=== PATIENT | male | born 1965 | race Caucasian/White ===

== ENCOUNTER → 2021-04-13 | Outpatient (CLI) | payer OTHER ==
[~2021-04-13] MED LIST: GABA300 PO; GLIP5 PO; Gabapentin600 MG PO; Glucotrol Xl5 MG PO; INSULANPEN SC; MOTION RELIEF25 MG PO; SIMV10 PO; ZOCOR20 MG PO
[2021-04-13 10:22] LABS: Magnesium, Blood 1.9 mg/dL (1.6-2.4); Thyroid Stimulating Hormone 1.025 uIU/mL (0.360-4.800)
== END ==
LOC: LAB SHORT 09:58 → LAB 09:58
PROVIDERS: Physician Assistant Medical
DX: R53.83 Other fatigue (principal)
CPT/HCPCS: 83735; 84443

== ENCOUNTER → 2022-06-08 | Outpatient (CLI) | payer OTHER ==
[~2022-06-08] MED LIST changes: +Clindamycin HC150 MG PO; +INSULIN GL100 UNIT/1 SQ; +LOW DOSE ASPIRI81 M1 PO; +NEURONTIN300 MG PO; +ONDA4ODT MM
[2022-06-08 15:09] LABS: Creatinine, Urine Random 90.9 mg/dL (27.00-270.00); Microalb/Creat Ratio UR, Rand 12.761 mg/g (0.000-30.000); Microalbumin, Random Urine 11.6 mg/L (0.000-20.000)
== END | disposition home or self-care (01) ==
LOC: LAB SHORT 04:00 → LAB 04:00
PROVIDERS: Physician Assistant
DX: E11.37X1 Type 2 diabetes mellitus with diabetic macular edema, resolved following treatment, right eye (principal)
CPT/HCPCS: 82043; 82570

== ENCOUNTER → 2023-09-27 | Outpatient (CLI) | payer OTHER ==
[2023-09-27 14:44] LABS: BASOPHILS ABSOLUTE AUTO 0.04 K/mm3 (0.00-0.23); BASOPHILS PERCENT AUTO 1 % (0-2); EOSINOPHILS ABSOLUTE AUTO 0.11 K/mm3 (0.00-0.68); EOSINOPHILS PERCENT AUTO 2 % (0-6); Hematocrit 44.4 % (37.0-53.0); Hemoglobin 15.5 g/dL (13.5-17.5); IMMATURE GRAN ABSOLUTE AUTO 0.02 K/mm3 (0.00-0.10); IMMATURE GRAN PERCENT AUTO 0 % (0-1); LYMPHOCYTES ABSOLUTE AUTO 2.46 K/mm3 (0.84-5.20); LYMPHOCYTES PERCENT AUTO 33 % (21-46); MONOCYTES ABSOLUTE AUTO 0.46 K/mm3 (0.16-1.47); MONOCYTES PERCENT AUTO 6 % (4-13); Mean Corpuscular HGB 29.1 pg (26.0-34.0); Mean Corpuscular HGB Conc 34.9 g/dL (31.5-36.5); Mean Corpuscular Volume 83 fL (80-100); Mean Platelet Volume 9.2 fL (9.1-12.4); NEUTROPHILS ABSOLUTE AUTO 4.33 K/mm3 (1.96-9.15); NEUTROPHILS PERCENT AUTO 58 % (41-73); Platelet Count 165 K/mm3 (150-400); RDW Standard Deviation 38.5 fL (35.1-46.3); Red Blood Cell Count 5.33 M/mm3 (4.30-5.90); White Blood Cell Count 7.42 K/mm3 (4.00-11.30)
[2023-09-27 14:53] LABS: Albumin, Blood 3.7 g/dL (3.4-5.0); Albumin/Globulin Ratio 1.1 (0.8-1.8); Bun/Creatinine Ratio 22.6 (12.0-20.0); Creatinine, Blood 0.84 mg/dL (0.60-1.20); Globulin, Blood 3.5 g/dL (2.2-4.0); Potassium, Blood 3.8 mmol/L (3.5-5.5); Total Protein, Blood 7.2 g/dL (6.4-8.2)
== END ==
LOC: LAB SHORT 14:31 → LAB 14:31
PROVIDERS: Physician Assistant
DX: R25.2 Cramp and spasm (principal); R60.0 Localized edema
CPT/HCPCS: 80053; 85025; 85379

== ENCOUNTER 2024-12-16 10:43 | Emergency (ER) | payer OTHER ==
[~2024-12-16] VITALS: Ht 198.1 cm; Wt 103.4 kg
[2024-12-16 10:52] VITALS: BP 142/91
[2024-12-16] MEDS ORDERED: Robaxin750 MG PO (10:58)
[2024-12-16] MEDS ORDERED: IBUP800 PO (10:58)
== END 2024-12-16 11:00 | disposition home or self-care (01) ==
LOC: ER 10:43
DX: S29.012A Strain of muscle and tendon of back wall of thorax, initial encounter (principal); E11.40 Type 2 diabetes mellitus with diabetic neuropathy, unspecified; E78.5 Hyperlipidemia, unspecified; Z87.891 Personal history of nicotine dependence; Z79.4 Long term (current) use of insulin; Z79.82 Long term (current) use of aspirin; Z79.84 Long term (current) use of oral hypoglycemic drugs; Z79.899 Other long term (current) drug therapy; X50.0XXA Overexertion from strenuous movement or load, initial encounter
CPT/HCPCS: 99283